=== PATIENT | female | born 1930 | race Caucasian/White ===

== ENCOUNTER 2016-08-24 10:57 | Day surgery (SDC) | payer OTHER ==
[~2016-08-24] VITALS: Ht 152.4 cm; Wt 64.5 kg
[~2016-08-24 10:57] MED LIST: ALEVE220 MG PO; ALLERGY EYE DRO10 ML BOTH EYES; AMBIEN5 MG PO; ANTIVERT25 MG PO; ATENOLOL25 MG PO; ATIVAN0.5 MG PO; Atenolol PO; B 12 PO; B COMPLEX1 EAC2 PO; BENADRYL ALLERG25 MG PO; BENADRYL ITCH28.3 GM TP; BENADRYL25 MG PO; CALCARB 600 W-1 EACH PO; CALCIUM 1,2001 EACH PO; CALCIUM 500 +1 EAC2 PO; CALCIUM 500 WI1 EAC2 PO; CALICUM PO; CALTRATE 600 +1 EAC2 PO; CELEXA10 MG PO; CELEXA20 MG PO; CEPHALEXIN500 MG PO; CILOSTAZOL100 MG PO; CIPRO500 MG PO; CITALOPRAM HBR20 MG PO; CITRACAL + D C1 EACH PO; CORGARD20 MG PO; COUMADIN5 MG PO; CYANOCOBALAM1000 MCG PO; DITROPAN XL5 MG PO; DITROPAN5 MG PO; DOCUSATE SODIU100 MG PO; DYAZIDE, MA1 CAPSULE PO; ERGOCALCIF50000 UNIT PO; FENTANYL1 EAC5 TD; FISH OIL + VIT1 EACH PO; FISH OIL 1,001000 M1 PO; FISH OIL SOFTG1 EAC1 PO; FISH OIL SOFTG1 EACH PO; FISH OIL300 MG PO; FORMULA E400 UNIT PO; GABAPENTIN100 MG PO; GLUCOPHAGE500 MG PO; GLUMETZA500 M1 PO; HYDROCODON-ACE1 EAC7 PO; K-DUR10 MEQ PO; K-DUR20 MEQ PO; KLOR-CON M2020 MEQ PO; KRILL OIL500 MG PO; LIDOCAINE700 MG TD; LORAZEPAM0.5 MG PO; LOVENOX60 MG/0.6 SC; LUBRICANT EYE D15 M2 BOTH EYES; MACROBID100 MG PO; MAXZIDE 37.5 M1 EACH PO; MECLIZINE HCL25 MG PO; METFORMIN HCL500 M1 PO; METFORMIN HCL500 MG PO; MICRO-K10 ME1 PO; MILK OF MAGNESI10 ML PO; MULTIVITAMIN1 EAC2 PO; MYRBETRIQ25 MG PO; NEOSPORIN TP; NEURONTIN100 MG PO; NORCO 5/3251 TABLET PO; NOVOLOG PE100 UNITS/ SC; OMEPRAZOLE40 M1 PO; OXYBUTYNIN CHLOR5 MG PO; PLAVIX75 MG PO; PLETAL100 MG PO; POLYETHYLENE GL17 GM PO; POTASSIUM CHLO10 ME3 PO; POTASSIUM CHLO10 ME4 PO; PRAVASTATIN SOD20 MG PO; PRILOSEC20 MG PO; PROAIR HFA8.5 GM IH; RANITIDINE HCL150 MG PO; SENNA8.6 MG PO; SIMVASTATIN10 MG PO; TENORMIN25 MG PO; TRIAMTERENE W/1 EACH PO; TRIAMTERENE-HC1 EAC1 PO; TRIAMTERENE-HC1 EACH PO; TURMERIC500 MG PO; TYLENOL EXTRA500 MG PO; TYLENOL REGULA325 MG PO; TYLENOL WITH C1 EACH PO; VICODIN 5-3001 EACH PO; VICODIN,LORT1 TABLET PO; VITAMIN B-122000 MC1 PO; VITAMIN B-122000 MCG PO; VITAMIN B-6100 MG PO; VITAMIN B-650 MG PO; VITAMIN B12-FO1 EACH PO; VITAMIN D PO; VITAMIN D250000 UNIT PO; VITAMIN D50000 UNI4 PO; VITAMIN E400 UNI6 PO; VITAMIN E400 UNIT PO; WARFARIN SODIUM5 MG PO; XARELTO20 MG PO; ZOCOR10 MG PO; [UNRECOGNIZED DRUG - CODE] PO; [UNRECOGNIZED DRUG - OTHER] PO; [UNRECOGNIZED DRUG - REMARK] PO
[2016-08-26] MEDS ORDERED: CENTRUM SILVER1 EAC3 PO (13:31)
== END 2016-08-24 13:30 | disposition home or self-care (01) ==
LOC: PAIN 10:57
DX: M47.814 Spondylosis without myelopathy or radiculopathy, thoracic region (principal); I25.10 Atherosclerotic heart disease of native coronary artery without angina pectoris; I10 Essential (primary) hypertension; I73.9 Peripheral vascular disease, unspecified; K21.9 Gastro-esophageal reflux disease without esophagitis; Z95.1 Presence of aortocoronary bypass graft; Z79.02 Long term (current) use of antithrombotics/antiplatelets; Z86.711 Personal history of pulmonary embolism
CPT/HCPCS: J1030; J3010; S0020

== ENCOUNTER 2016-08-30 11:19 | Day surgery (SDC) | payer OTHER ==
[~2016-08-30] VITALS: Ht 152.4 cm; Wt 64.5 kg
[~2016-08-30 11:19] MED LIST changes: +CENTRUM SILVER1 EAC3 PO
[2016-08-30] MEDS ORDERED: ALOE VERA25 MG PO (12:45)
== END 2016-08-30 14:17 | disposition home or self-care (01) ==
LOC: PAIN 11:19 → SDC 12:00 → PAIN 14:17
DX: M47.814 Spondylosis without myelopathy or radiculopathy, thoracic region (principal); M54.6 Pain in thoracic spine; F41.9 Anxiety disorder, unspecified; M47.812 Spondylosis without myelopathy or radiculopathy, cervical region; M12.88 Other specific arthropathies, not elsewhere classified, other specified site; M99.32 Osseous stenosis of neural canal of thoracic region; G89.29 Other chronic pain; Z86.718 Personal history of other venous thrombosis and embolism; Z86.711 Personal history of pulmonary embolism; Z86.73 Personal history of transient ischemic attack (TIA), and cerebral infarction without residual deficits; Z87.891 Personal history of nicotine dependence; Z81.4 Family history of other substance abuse and dependence; Z88.6 Allergy status to analgesic agent; Z88.5 Allergy status to narcotic agent; Z88.8 Allergy status to other drugs, medicaments and biological substances; Z91.018 Allergy to other foods
CPT/HCPCS: J1030; J2250; J3010; S0020

== ENCOUNTER 2016-11-08 08:52 | Day surgery (SDC) | payer OTHER ==
[~2016-11-08] VITALS: Ht 152.4 cm; Wt 64.5 kg
[~2016-11-08 08:52] MED LIST changes: +ALOE VERA25 MG PO
== END 2016-11-08 11:03 | disposition home or self-care (01) ==
LOC: PAIN 08:52 → SDC 09:30 → PAIN 09:30
DX: M47.814 Spondylosis without myelopathy or radiculopathy, thoracic region (principal); M47.812 Spondylosis without myelopathy or radiculopathy, cervical region; F41.9 Anxiety disorder, unspecified; M51.24 Other intervertebral disc displacement, thoracic region; G89.29 Other chronic pain; Z87.891 Personal history of nicotine dependence
CPT/HCPCS: J1030; J2405; J3010; S0020

== ENCOUNTER 2017-09-06 15:14 | Observation (INO) | payer OTHER ==
[~2017-09-06] VITALS: Ht 152.4 cm; Wt 73.4 kg
[~2017-09-06 15:14] MED LIST changes: +VITAMIN D5000 UNI1 PO; -VITAMIN D50000 UNI4 PO
[2017-09-06 15:52] LABS: HEMATOCRIT 36.8 % (36.0-46.0); HEMOGLOBIN 11.9 G/DL (11.9-15.5); MCH 26.4 PG (29.0-34.0); MCHC 32.3 G/DL (30.0-36.0); MCV 81.6 FL (83-99); PLATELET COUNT 220 K/uL (156-360); RBC DIS.WIDTH-CV 17.1 % (11.8-14.6); RBC DIS.WIDTH-SD 50.8 % (39-53); RED BLOOD COUNT 4.51 M/uL (3.80-5.20)
[2017-09-06 16:01] LABS: CHLORIDE 102 mEq/L (99-109); POTASSIUM 3.4 mEq/L (3.7-5.4); SODIUM 138 mEq/L (136-147)
[2017-09-06 16:03] LABS: GLUCOSE 164 mg/dL (70-99)
[2017-09-06 16:06] LABS: CREATININE 0.8 mg/dL (0.6-1.3); GFR ESTIMATE (CALCULATED) > 59 mL/min/
[2017-09-06 16:07] LABS: UREA NITROGEN (BUN) 11 mg/dL (9-23)
[2017-09-06 16:12] LABS: TROP-I INTERPRETATION NEGATIVE; TROPONIN-I 0.01 ng/mL (0.0-0.30)
[2017-09-06] MEDS ORDERED: IMODIUM A-D2 M2 PO (17:38)
[2017-09-06] MEDS ORDERED: ZOCOR10 MG PO (17:38)
[2017-09-06] MEDS ORDERED: TYLENOL EXTRA500 MG PO (17:40)
[2017-09-06] MEDS ORDERED: BENADRYL25 MG PO (17:40)
[2017-09-06] MEDS ORDERED: PRILOSEC20 MG PO (17:41)
[2017-09-06] MEDS ORDERED: TYLENOL PM EX-1 EACH PO (17:41)
[2017-09-06] MEDS ORDERED: DITROPAN5 MG PO (17:42)
[2017-09-06] MEDS ORDERED: VENTOLIN HFA18 GM IH (17:42)
[2017-09-06 19:24] LABS: TROP-I INTERPRETATION NEGATIVE; TROPONIN-I < 0.01 ng/mL (0.0-0.30)
[2017-09-06 20:29] VITALS: BP 151/79
[2017-09-07 00:07] VITALS: BP 110/58
[2017-09-07 00:56] LABS: TROP-I INTERPRETATION NEGATIVE; TROPONIN-I 0.01 ng/mL (0.0-0.30)
[2017-09-07 04:16] VITALS: BP 135/67
[2017-09-07 07:15] LABS: TROP-I INTERPRETATION NEGATIVE; TROPONIN-I < 0.01 ng/mL (0.0-0.30)
[2017-09-07 10:05] VITALS: BP 130/68
[2017-09-07 11:52] VITALS: BP 129/68
== END 2017-09-07 16:28 | disposition home or self-care (01) ==
LOC: EME 15:14 → EDOF 16:51 → 4SOUTH 16:51 → ENRESERV 16:51 → EDOF 16:51 → ENRESERV 17:19 → 4SOUTH 20:00 → ENPENDDIS 09-07 → 4SOUTH 09-07 16:28
PROVIDERS: Emergency Medicine; Hospitalist
DX: R07.9 Chest pain, unspecified (principal); R91.1 Solitary pulmonary nodule; R94.31 Abnormal electrocardiogram [ECG] [EKG]; I25.10 Atherosclerotic heart disease of native coronary artery without angina pectoris; Z95.1 Presence of aortocoronary bypass graft; I11.9 Hypertensive heart disease without heart failure; E11.51 Type 2 diabetes mellitus with diabetic peripheral angiopathy without gangrene; E87.6 Hypokalemia; K44.9 Diaphragmatic hernia without obstruction or gangrene; Z86.73 Personal history of transient ischemic attack (TIA), and cerebral infarction without residual deficits; Z86.711 Personal history of pulmonary embolism; D50.9 Iron deficiency anemia, unspecified; E78.5 Hyperlipidemia, unspecified; Z88.5 Allergy status to narcotic agent; Z88.6 Allergy status to analgesic agent; Z91.048 Other nonmedicinal substance allergy status; Z79.02 Long term (current) use of antithrombotics/antiplatelets; Z87.891 Personal history of nicotine dependence
CPT/HCPCS: 71046; 71275; 80048; 84484; 85027; 85379; 93005; 99281; 99285; G0378; J1650